=== PATIENT | female | born 1995 | race Caucasian/White ===

== ENCOUNTER 2022-12-20 05:13 | Inpatient (IN) | payer BC ==
[2022-12-20] MEDS ORDERED: Oxytocin/Lactated Ringers 10 UNIT/1,000 ML BAG IV ONE (07:54)
[2022-12-20] MEDS ORDERED: Lactated Ringers 1,000 ML ONE (07:55)
[2022-12-20] MEDS: Lactated Ringers 1,000 ML IV SCH ×3 (08:05→19:08)
[2022-12-20] MEDS: Oxytocin/Lactated Ringers 10 UNIT/1,000 ML BAG IV SCH ×2 (08:05→20:12)
[2022-12-20] MEDS ORDERED: Nalbuphine 10 MG/0.5 ML Syringe IVPUSH PRN (08:11)
[2022-12-20] MEDS ORDERED: Ondansetron 4 MG/2 ML SDV IVPUSH PRN (08:11)
[2022-12-20] MEDS ORDERED: Acetaminophen 325 MG Tab PO PRN (08:11)
[2022-12-20] MEDS ORDERED: Calcium Carbonate 500 MG Tab.Chew PO PRN (08:11)
[2022-12-20] MEDS ORDERED: Lidocaine 1% 50 ML MDV INJECT ONE (08:11)
[2022-12-20] MEDS ORDERED: Oxytocin/Lactated Ringers 10 UNIT/1,000 ML BAG IV SCH (08:15)
[2022-12-20 08:34] LABS: BASOPHILS ABSOLUTE AUTO 0.02 K/mm3 (0.01-0.08); BASOPHILS PERCENT AUTO 0.2 % (0.1-1.2); EOSINOPHILS ABSOLUTE AUTO 0.05 K/mm3 (0.04-0.36); EOSINOPHILS PERCENT AUTO 0.5 (0.7-5.8); HEMATOCRIT 37.2 % (34.1-44.9); HEMOGLOBIN 12.5 gm/dl (11.2-15.7); IMMATURE GRAN ABSOLUTE AUTO 0.03 K/mm3 (0.00-0.10); IMMATURE GRAN PERCENT AUTO 0.3 % (<=1.0); LYMPHOCYTES ABSOLUTE AUTO 1.81 K/mm3 (1.18-3.74); MEAN CORPUSCULAR HEMOGLOBIN 28.1 pg (25.6-32.2); MEAN CORPUSCULAR HGB CONC 33.6 g/dl (32.2-35.5); MEAN CORPUSCULAR VOLUME 83.6 fl (79.4-94.8); MEAN PLATELET VOLUME 10.1 fl (9.4-12.3); MONOCYTES ABSOLUTE AUTO 0.99 K/mm3 (0.24-0.36); MONOCYTES PERCENT AUTO 10.4 % (4.7-12.5); NEUTROPHILS ABSOLUTE AUTO 6.65 K/mm3 (1.56-6.13); NEUTROPHILS PERCENT AUTO 69.6 % (34.0-71.1); PLATELET COUNT,PLT 253 K/mm3 (182-369); RED BLOOD CELL COUNT 4.45 M/mm3 (3.98-5.22); WHITE BLOOD CELL COUNT,WBC 9.55 K/mm3 (3.98-10.04)
[2022-12-20] MEDS ORDERED: ePHEDrine 50 MG/ML SDV IVPUSH PRN (17:32)
[2022-12-20] MEDS ORDERED: diphenhydrAMINE 50 MG/ML SDV IVPUSH PRN (17:32)
[2022-12-20] MEDS ORDERED: fentaNYL 100 MCG/2 ML SDV EPIDUR PRN (17:32)
[2022-12-20] MEDS: Bupivacaine/fentaNYL/NS 100 ML Bag EPIDUR PRN (17:42)
[2022-12-21] MEDS ORDERED: Ropivacaine 0.2% PF 2 MG/ML 20 ML SDV ONE
[2022-12-21] MEDS: Bupivacaine/fentaNYL/NS 100 ML Bag EPIDUR PRN (00:24)
[2022-12-21] MEDS ORDERED: Metoclopramide 10 MG/2 ML SDV IVPUSH ONE (04:40)
[2022-12-21] MEDS ORDERED: Azithromycin 500 MG in Sodium Chloride 0.9% 250 ML IV ONE (04:40)
[2022-12-21] MEDS ORDERED: Citric Acid/Sodium Citrate Solution 30 ML Cup PO ONE (04:40)
[2022-12-21] MEDS ORDERED: Bupivacaine 0.5% 30 ML SDV ONE (04:41)
[2022-12-21] MEDS ORDERED: ceFAZolin 2 GM in Sodium Chloride 0.9% 50 ML IV ONE (04:44)
[2022-12-21] MEDS ORDERED: Oxytocin 10 Units/1 ML SDV ONE (04:46)
[2022-12-21] MEDS ORDERED: Ondansetron 4 MG/2 ML SDV ONE (04:46)
[2022-12-21] MEDS ORDERED: ceFAZolin 2 GM Vial ONE (05:05)
[2022-12-21] MEDS ORDERED: Morphine PF 10 MG/10 ML SDV ONE (05:17)
[2022-12-21] MEDS ORDERED: ePHEDrine 50 MG/ML SDV IVPUSH PRN (07:05)
[2022-12-21] MEDS ORDERED: diphenhydrAMINE 50 MG/ML SDV IVPUSH PRN (07:05)
[2022-12-21] MEDS ORDERED: Naloxone 0.4 MG/ML SDV IVPUSH PRN (07:05)
[2022-12-21] MEDS ORDERED: Dextrose 5%-Lactated Ringers 1,000 ML IV SCH (07:05)
[2022-12-21] MEDS ORDERED: Acetaminophen/oxyCODONE 325-5 MG Tab PO PRN (07:05)
[2022-12-21] MEDS ORDERED: Acetaminophen 325 MG Tab PO PRN (07:05)
[2022-12-21] MEDS: Ketorolac 30 MG/ML SDV IVPUSH SCH ×3 (08:08→20:31)
[2022-12-22] MEDS ORDERED: Ketorolac 30 MG/ML SDV IVPUSH ONE (04:50)
[2022-12-22 06:21] LABS: BASOPHILS ABSOLUTE AUTO 0.02 K/mm3 (0.01-0.08); BASOPHILS PERCENT AUTO 0.2 % (0.1-1.2); EOSINOPHILS ABSOLUTE AUTO 0.06 K/mm3 (0.04-0.36); EOSINOPHILS PERCENT AUTO 0.5 (0.7-5.8); HEMATOCRIT 28.8 % (34.1-44.9); IMMATURE GRAN ABSOLUTE AUTO 0.04 K/mm3 (0.00-0.10); IMMATURE GRAN PERCENT AUTO 0.3 % (<=1.0); MEAN CORPUSCULAR HEMOGLOBIN 27.4 pg (25.6-32.2); MEAN CORPUSCULAR HGB CONC 31.9 g/dl (32.2-35.5); MEAN CORPUSCULAR VOLUME 85.7 fl (79.4-94.8); MEAN PLATELET VOLUME 10.3 fl (9.4-12.3); MONOCYTES ABSOLUTE AUTO 1.09 K/mm3 (0.24-0.36); MONOCYTES PERCENT AUTO 8.7 % (4.7-12.5); NEUTROPHILS ABSOLUTE AUTO 9.27 K/mm3 (1.56-6.13); NEUTROPHILS PERCENT AUTO 74.3 % (34.0-71.1); PLATELET COUNT,PLT 209 K/mm3 (182-369); RED BLOOD CELL COUNT 3.36 M/mm3 (3.98-5.22); WHITE BLOOD CELL COUNT,WBC 12.48 K/mm3 (3.98-10.04)
[2022-12-22 06:27] LABS: HEMOGLOBIN 9.2 gm/dl (11.2-15.7)
[2022-12-22] MEDS: Acetaminophen/oxyCODONE 325-5 MG Tab PO PRN ×4 (08:41→21:34)
[2022-12-22] MEDS: Ibuprofen 600 MG Tab PO PRN (12:07)
[2022-12-22] MEDS: Docusate Sodium 100 MG Cap PO PRN (21:35)
[2022-12-23] MEDS: Ibuprofen 600 MG Tab PO PRN (05:54)
[2022-12-23] MEDS: Acetaminophen/oxyCODONE 325-5 MG Tab PO PRN (09:01)
[2022-12-23] MEDS: Docusate Sodium 100 MG Cap PO PRN (09:01)
[2022-12-23] MEDS ORDERED: Measles, Mumps & Rubella Vaccine 0.5 ML SDV SUBCUT ONE (09:39)
== END 2022-12-23 11:33 | disposition home or self-care (01) | DRG 540 ==
LOC: JD.OB 05:13 → OBSVTOIN 12-21 05:13 → JD.OB 12-21 05:14
PROVIDERS: ADMIT Obstetrics & Gynecology; ATTEND Obstetrics & Gynecology
PROC: 10D00Z1 Extraction of Products of Conception, Low, Open Approach (ICD-10-PCS; principal; 2022-12-21)
PROC: 3E0R3BZ Introduction of Anesthetic Agent into Spinal Canal, Percutaneous Approach (ICD-10-PCS; principal; 2022-12-21)
PROC: 10H07YZ Insertion of Other Device into Products of Conception, Via Natural or Artificial Opening (ICD-10-PCS; principal; 2022-12-21)
PROC: 00HU33Z Insertion of Infusion Device into Spinal Canal, Percutaneous Approach (ICD-10-PCS; principal; 2022-12-21)
DX: O48.0 Post-term pregnancy (principal); Z3A.40 40 weeks gestation of pregnancy; Z37.0 Single live birth; O62.0 Primary inadequate contractions
CPT/HCPCS: 01967; 01968; 36415; 51702; 59025; 85025; 86592; 86850; 86900; 86901; 90471; 90707; A9270-GY; J0456; J0690; J1885; J2274; J2405; J2590; J2765; J2795; J3490; J7050; J7120; J7121